=== PATIENT | male | born 1995 | race Two or more races ===

== ENCOUNTER 2019-05-21 20:45 | Emergency (ER) | payer MEDICAID ==
[~2019-05-21] VITALS: Ht 172.7 cm; Wt 94.8 kg
[2019-05-21] MEDS ORDERED: IBUPROFEN 600 MG TABLET PO ONE ×2 (22:00→22:29)
--- NOTE | 2019-05-21 22:31 | NUR ---
BIBSELF WITH FAMILY. TO ER CHAIR 1. AAOX4. NO RESP DISTRESS NOTED. AMBULATORY WITH LIMP. C/O R ANKLE PAIN. PT REPORTS THE HE STEEPED ON THE FOOT WRONG WHILE WALKING. PAIN IS 6/10. ROM INTACT. SENSATION FELT. PEDAL PULSE PRESENT. MD WAS AT BEDSIDE FOR EVAL. XRAY DONE AND PT MEDICATED
--- NOTE | 2019-05-21 22:56 | NUR ---
Patient discharged to home in stable condition. Written and verbal after care instructions given. Patient verbalizes understanding of instruction.
[2019-05-21 23:00] VITALS: BP 137/84
== END 2019-05-21 23:00 | disposition home or self-care (01) ==
LOC: ER 20:48
DX: S93.492A Sprain of other ligament of left ankle, initial encounter (principal); I10 Essential (primary) hypertension; W18.39XA Other fall on same level, initial encounter; Y93.89 Activity, other specified; Y92.89 Other specified places as the place of occurrence of the external cause; Y99.8 Other external cause status
CPT/HCPCS: 73610-TC